=== PATIENT | male | born 1980 | race Caucasian/White ===

== ENCOUNTER 2021-09-23 17:13 | Emergency (ER) | payer MEDICAID ==
[~2021-09-23] VITALS: Ht 167.6 cm; Wt 117.9 kg
[2021-09-23 17:14] VITALS: BP 186/113
--- NOTE | 2021-09-23 17:18 | NUR ---
BIBA to bed 12
--- NOTE | 2021-09-23 17:34 | NUR ---
40 y/o M BIBA from worksite for 4" laceration to LLE. Per EMS, patient was carrying a bag with an exposed chisel that fell and struck LLE. EMS states 4" deep laceration with estimated 40cc blood loss on scene. Pressure dressing and gauze roll applied with bleeding controlled by EMS. Denies trauma, injury, fall. 18G to left AC. EMS BP 189/120 HR 115 95% on room air BS 310. Bed locked in lowest position, side rails x 1. PMH: HTN, DM Meds: metformin, unable to obtain BP med NKDA
[2021-09-23] MEDS ORDERED: IBUPROFEN 600 MG TAB PO ONE (17:45)
[2021-09-23] MEDS ORDERED: LIDOCAINE MPF 1% 10 MG/ML VIAL INJ ONE ×2 (17:45→17:55)
--- NOTE | 2021-09-23 17:56 | NUR ---
Dr. De is at bedside for laceration repair
--- NOTE | 2021-09-23 17:56 | NUR ---
TDAP consent form signed
[2021-09-23] MEDS ORDERED: CEPH-588 PO (18:46)
[2021-09-23] MEDS ORDERED: IBUP-1842 PO (18:46)
--- NOTE | 2021-09-23 18:57 | NUR ---
wound cleaned and irrigated with normal saline and dressed with non-adherent gauze pad and wrapped with bulky dressing. cms wnl before and after. PA and RN notified.
[2021-09-23 19:05] VITALS: BP 167/101
--- NOTE | 2021-09-23 19:05 | NUR ---
Patient discharged with v/s stable. Written and verbal after care instructions given and explained. Patient alert, oriented and verbalized understanding of instructions. Ambulatory with steady gait. All questions addressed prior to discharge. ID band removed. Patient advised to follow up with PMD. Rx of Keflex, Ibuprofen given. Patient educated on indication of medication including possible reaction and side effects. Opportunity to ask questions provided and answered.
== END 2021-09-23 19:05 | disposition home or self-care (01) ==
LOC: MED 17:13
DX: S81.812A Laceration without foreign body, left lower leg, initial encounter (principal); E11.9 Type 2 diabetes mellitus without complications; Z79.899 Other long term (current) drug therapy; W27.0XXA Contact with workbench tool, initial encounter; Y93.89 Activity, other specified; Y92.89 Other specified places as the place of occurrence of the external cause; Y99.8 Other external cause status
CPT/HCPCS: 12002; 90471; 90715; 99283; J2001